=== PATIENT | male | born 1985 | race Caucasian/White ===

== ENCOUNTER 2018-02-10 21:46 | Emergency (ER) | payer SELFPAY ==
[2018-02-10] MEDS ORDERED: TETANUS & DIPHTHERIA TOX,ADULT 0.5 ML VIAL ONE (22:10)
[2018-02-10] MEDS ORDERED: IBUPROFEN 200 MG TAB PO ONE (22:11)
[2018-02-10] MEDS ORDERED: IBUPROFEN 400 MG TAB ONE (22:11)
--- NOTE | 2018-02-10 22:28 | EDPHYS ---
Physician Documentation [facility] Name: Сергей Waller Age: 32 yrs Sex: Male : 1985 Arrival Date: 02/10/2018 Time: 21:49 Bed 6 Private MD: ED Physician Hai Carroll HPI: 02/10 22:25 This 32 yrs old Male presents to ER via EMS with complaints of Ankle Injury. gs 22:25 The patient presents with an injury. The complaints affect the right ankle. Onset: The gs symptoms/episode began/occurred acutely, just prior to arrival. Context: resulted from a mis-step by the patient, the patient stepping on hole. Associated signs and symptoms: Pertinent negatives: calf tenderness, numbness. Modifying factors: the symptoms are aggravated by movement. Severity of symptoms: At their worst the symptoms were moderate, in the emergency department the symptoms are unchanged. The patient has not experienced similar symptoms in the past. The patient has not recently seen a physician. Historical: - Allergies: 21:56 No Known Allergies; fc - Home Meds: 21:56 None [Active]; fc - PMHx: 21:56 None; fc - PSHx: 21:56 right arm surg; back surg; Tonsillectomy; fc - Immunization history:: Last tetanus immunization: up to date. - Social history:: Smoking status: Patient uses tobacco products, smokes one-half pack cigarettes per day, Patient uses alcohol, on a daily basis. - Ebola Screening: : Patient negative for fever greater than or equal to 101.5 degrees Fahrenheit, and additional compatible Ebola Virus Disease symptoms Patient denies exposure to infectious person Patient denies travel to an Ebola-affected area in the 21 days before illness onset. ROS: 22:25 All other systems are negative. gs Exam: 22:25 Head/Face: Normocephalic, atraumatic. Eyes: Pupils equal round and reactive to light, gs extra-ocular motions intact. Lids and lashes normal. Conjunctiva and sclera are non-icteric and not injected. Cornea within normal limits. Periorbital areas with no swelling, redness, or edema. ENT: Nares patent. No nasal discharge, no septal abnormalities noted. Tympanic membranes are normal and external auditory canals are clear. Oropharynx with no redness, swelling, or masses, exudates, or evidence of obstruction, uvula midline. Mucous membranes moist. Neck: Trachea midline, no thyromegaly or masses palpated, and no cervical lymphadenopathy. Supple, full range of motion without nuchal rigidity, or vertebral point tenderness. No Meningismus. Chest/axilla: Normal chest wall appearance and motion. Nontender with no deformity. No lesions are appreciated. Cardiovascular: Regular rate and rhythm with a normal S1 and S2. No gallops, murmurs, or rubs. Normal PMI, no JVD. No pulse deficits. Respiratory: Lungs have equal breath sounds bilaterally, clear to auscultation and percussion. No rales, rhonchi or wheezes noted. No increased work of breathing, no retractions or nasal flaring. Abdomen/GI: Soft, non-tender, with normal bowel sounds. No distension or tympany. No guarding or rebound. No evidence of tenderness throughout. Back: No spinal tenderness. No costovertebral tenderness. Full range of motion. Neuro: Awake and alert, GCS 15, oriented to person, place, time, and situation. Cranial nerves II-XII grossly intact. Motor strength 5/5 in all extremities. Sensory grossly intact. Cerebellar exam normal. Normal gait. 22:25 Constitutional: The patient appears alert, awake. 22:25 Musculoskeletal/extremity: ROM: limited active range of motion due to pain, limited passive range of motion due to pain, Pulses: are normal with no appreciated deficits, Joints: the right ankle displays painful range of motion, swelling, tenderness. 22:30 Skin: injury, abrasion(s), very small abrasion noted, of the anterior aspect of left gs ankle. Vital Signs: 21:45 BP 158 / 79; Pulse 81; Resp 18; Temp 98.5(O); Pulse Ox 96% on R/A; Weight 79.38 kg (R); fc Height 5 ft. 8 in. (172.72 cm) (R); Pain 7/10; 21:45 Body Mass Index 26.61 (79.38 kg, 172.72 cm) fc MDM: 21:56 Patient medically screened. 22:25 Differential diagnosis: fracture, sprain. Data reviewed: vital signs, nurses notes. gs Response to treatment: the patient's symptoms have markedly improved after treatment, and as a result, I will discharge patient. 22:29 Counseling: I had a detailed discussion with the patient and/or guardian regarding: the historical points, exam findings, and any diagnostic results supporting the discharge/admit diagnosis, the presence of at least one elevated blood pressure reading (>120/80) during this emergency department visit. Special discussion: I have referred the patient to see his PCP for further evaluation of high blood pressure. 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 Exp: tl2 03/10/2019. Lot #: [id number]. } Route: IM; Site: left deltoid; 22:54 Follow up: Response: No adverse reaction tl2 22:09 Drug: Ibuprofen 600 mg Route: PO; jd3 22:54 Follow up: Response: No adverse reaction tl2 Disposition: 02/10/18 22:28 Discharged to Home. Impression: Sprain of other ligament of right ankle. - Condition is Stable. - Discharge Instructions: Ankle Sprain, [id number]. - Work release form, Medication Reconciliation Form, Thank You Letter, Antibiotic Education, Prescription Opioid Use form. - Follow up: Aron Franklin MD; When: 2 - 3 days; Reason: Re-evaluation by your physician. Signatures: Dispatcher [employer] EDMS Cristin Stout RN RN Eveline Espinosa RN RN tl2 Hai Carroll MD MD gs Davies, Jonathon, RN RN jd3 Corrections: (The following items were deleted from the chart) 22:56 22:28 02/10/2018 22:28 Discharged to Home. Impression: Sprain of other ligament of tl2 right ankle. Condition is Stable. Forms are Medication Reconciliation Form, Thank You Letter, Antibiotic Education, Prescription Opioid Use. Follow up: Aron Franklin; When: 2 - 3 days; Reason: Re-evaluation by your physician. 02/11 00:22 02/10 22:56 02/10/2018 22:28 Discharged to Home. Impression: Sprain of other ligament tl2 of right ankle. Condition is Stable. Discharge Instructions: Ankle Sprain, [id number]. Forms are Medication Reconciliation Form, Thank You Letter, Antibiotic Education, Prescription Opioid Use, Work release form. Follow up: Aron Franklin; When: 2 - 3 days; Reason: Re-evaluation by your physician. tl2
--- NOTE | 2018-02-10 22:28 | ER ---
Nurse's Notes [facility] Name: Сергей Waller Age: 32 yrs Sex: Male : 1985 Arrival Date: 02/10/2018 Time: 21:49 Bed 6 Private MD: Diagnosis: Sprain of other ligament of right ankle Presentation: 02/10 21:45 Presenting complaint: EMS states: that pt was drinking today and walking thru the yard. fc Stepped in a hole and twisted right ankle. Transition of care: patient was not received from another setting of care. Onset of symptoms was February 10, 2018 at 21:00. Risk Assessment: Do you want to hurt yourself or someone else? Patient reports no desire to harm self or others. Initial Sepsis Screen: Does the patient meet any 2 criteria? No. Patient's initial sepsis screen is negative. Does the patient have a suspected source of infection? No. Patient's initial sepsis screen is negative. Care prior to arrival: Splint applied. 21:45 Method Of Arrival: EMS: [facility] 21:45 Acuity: LUNA 3 fc Historical: - Allergies: 21:56 No Known Allergies; fc - Home Meds: 21:56 None [Active]; fc - PMHx: 21:56 None; fc - PSHx: 21:56 right arm surg; back surg; Tonsillectomy; fc - Immunization history:: Last tetanus immunization: up to date. - Social history:: Smoking status: Patient uses tobacco products, smokes one-half pack cigarettes per day, Patient uses alcohol, on a daily basis. - Ebola Screening: : Patient negative for fever greater than or equal to 101.5 degrees Fahrenheit, and additional compatible Ebola Virus Disease symptoms Patient denies exposure to infectious person Patient denies travel to an Ebola-affected area in the 21 days before illness onset. Screenin:50 Abuse screen: Denies threats or abuse. Nutritional screening: No deficits noted. tl2 Tuberculosis screening: No symptoms or risk factors identified. Fall Risk Gait- Impaired (20 pts.). Assessment: 21:54 General: Appears in no apparent distress. uncomfortable, Behavior is cooperative, tl2 appropriate for age, anxious. General: Smells of alcohol. Pain: Complains of pain in right ankle Pain does not radiate. Neuro: Level of Consciousness is awake, alert, obeys commands, Oriented to person, place, time, situation. Cardiovascular: Denies chest pain. Respiratory: Airway is patent Respiratory effort is even, unlabored, Respiratory pattern is regular, symmetrical. GI: No signs and/or symptoms were reported involving the gastrointestinal system. Derm: Skin is pink, warm \T\ dry. Musculoskeletal: Circulation, motion, and sensation intact. Swelling present in right ankle. 22:55 Reassessment: Patient appears in no apparent distress at this time. Patient and/or tl2 family updated on plan of care and expected duration. Pain level reassessed. Patient is alert, oriented x 3, equal unlabored respirations, skin warm/dry/pink. Pt verbalized understanding of discharge instructions, need for follow up and use of aircast. Vital Signs: 21:45 BP 158 / 79; Pulse 81; Resp 18; Temp 98.5(O); Pulse Ox 96% on R/A; Weight 79.38 kg (R); fc Height 5 ft. 8 in. (172.72 cm) (R); Pain 7/10; 21:45 Body Mass Index 26.61 (79.38 kg, 172.72 cm) ED Course: 21:45 Arm band placed on Patient placed in an exam room, on a stretcher. fc 21:49 Patient arrived in ED. tl2 21:50 Hai Carroll MD is Attending Physician. gs 21:54 Eveline Espinosa, LASHAWN is Primary Nurse. tl2 21:55 Triage completed. fc 21:55 Patient has correct armband on for positive identification. Bed in low position. Call fc light in reach. Side rails up X2. 22:16 X-ray completed. Portable x-ray completed in exam room. Patient tolerated procedure kw well. 22:17 Ankle Right 3 View XRAY In Process Unspecified. EDMS 22:27 Aron Franklin MD is Referral Physician. gs 22:55 No provider procedures requiring assistance completed. Patient did not have IV access tl2 during this emergency room visit. 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 Exp: tl2 03/10/2019. Lot #: [id number]. } Route: IM; Site: left deltoid; 22:54 Follow up: Response: No adverse reaction tl2 22:09 Drug: Ibuprofen 600 mg Route: PO; jd3 22:54 Follow up: Response: No adverse reaction tl2 Outcome: 22:28 Discharge ordered by MD. moreno 22:55 Discharged to home via wheelchair. tl2 22:55 Condition: stable 22:55 Discharge instructions given to patient, Instructed on discharge instructions, follow up and referral plans. Demonstrated understanding of instructions, follow-up care. 22:56 Patient left the ED. tl2 02/11 00:22 Patient left the ED. tl2 Signatures: Dispatcher [employer] EDMS Cristin Stout RN RN Gisele Oro Taylor RN RN tl2 Hai Carroll MD MD gs Davies, Jonathon, RN RN jd3
--- NOTE | 2018-02-11 08:14 | RAD REPORT ---
EXAM DESCRIPTION: RAD - Ankle Right 3 View - 02/10/2018 10:17 pm CLINICAL HISTORY: Right ankle pain status post injury FINDINGS: Soft tissue swelling is present about the ankle. Bony densities lie adjacent to the medial and lateral malleoli as well as the talus. I suspect that t hese are chronic. No definite acute fracture is seen. No dislocation is noted.
== END 2018-02-11 00:22 | disposition home or self-care (01) ==
LOC: ER 21:46
PROC: 2W3QX1Z Immobilization of Right Lower Leg using Splint (ICD-10-PCS; principal; 2018-02-10)
DX: S93.491A Sprain of other ligament of right ankle, initial encounter (principal); W17.2XXA Fall into hole, initial encounter; F17.210 Nicotine dependence, cigarettes, uncomplicated; Z23 Encounter for immunization
CPT/HCPCS: 90714; 99283